=== PATIENT | female | born 1975 | race Caucasian/White ===

== ENCOUNTER → 2020-06-25 08:14 | Outpatient (BNVA) | payer BC, SELFPAY | PROVIDERS: Family Provider Nurse Practitioner; PCP Nurse Practitioner; Visit Provider Nurse Practitioner Family | DX: J02.0 Streptococcal pharyngitis (principal); R50.9 Fever, unspecified | CPT/HCPCS: 87071; 87400; 87880 ==

== ENCOUNTER → 2021-10-15 12:06 | Outpatient (BNVA) | payer BC, SELFPAY | PROVIDERS: Family Provider Nurse Practitioner; PCP Family Medicine; Visit Provider Family Medicine | DX: R07.9 Chest pain, unspecified (principal) | CPT/HCPCS: 80053; 82306; 84443; 84484; 85025; 85651; 86140 ==

== ENCOUNTER 2023-07-01 13:13 | Outpatient (CLI) | payer BC, SELFPAY ==
--- NOTE | 2023-07-01 13:30 | MM_ITS ---
WS: [id number] BILATERAL 3D TOMOSYNTHESIS DIGITAL SCREENING MAMMOGRAPHY WITH CAD CLINICAL INFORMATION: SCREENING HISTORY: Screening mammogram. No current complaints. COMPARISON: 2020 TECHNIQUE: Bilateral CC and MLO views. FINDINGS: The breasts are composed of heterogeneous fibroglandular density tissue, which can limit the detectio n of small underlying mass lesions. No suspicious mass, asymmetry, calcifications, or architectural d istortion. No evidence of malignancy. A few incidental punctate calcifications. IMPRESSION: MM/[place] [id number] BI-RADS: 2-Benign FOLLOW UP: 1 Year Follow-up Recommend return to annual screening mammography.
== END 2023-07-01 13:14 | disposition home or self-care (01) ==
LOC: MOBLMAM 13:16
PROVIDERS: Visit Provider Nurse Practitioner Family
DX: Z12.31 Encounter for screening mammogram for malignant neoplasm of breast (principal)
CPT/HCPCS: 77063; 77067

== ENCOUNTER 2024-07-22 16:05 | Outpatient (CLI) | payer BC, SELFPAY ==
--- NOTE | 2024-07-22 16:45 | MRR_ITS ---
PROCEDURE INFORMATION: Exam: MR Head Without Contrast Exam date and time: 07/22/2024 5:18 PM Age: 49 years old Clinical indication: Pain; Headache not specified; Patient HX: Headache for 3+days, blurred vision, nausea, ; additional info: I67.1 - cerebral aneurysm, nonruptured, auth # [id number] good 07/22/24 to 08/20/24 TECHNIQUE: Imaging protocol: Magnetic resonance imaging of the head without contrast. COMPARISON: No relevant prior studies available. FINDINGS: Brain: No intracranial hemorrhage. No evidence of acute territorial infarct or cerebral edema. No mass effect or midline shift. Cerebral ventricles: No hydrocephalus. Bones: Unremarkable. Paranasal sinuses: Mild mucosal thickening of the paranasal sinuses. No air-fluid levels. Mastoid air cells: The mastoid air cells are clear. Orbital cavities: The orbits and globes are unremarkable. 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 Vasculature: Unremarkable appearance of the vascular flow voids. No discrete aneurysm. Please note, this examination was not tailored for the assessment of the vasculature. Soft tissues: Soft tissues are unremarkable as visualized. MR/MR head wo con* [id number] IMPRESSION: No acute intracranial findings.
== END 2024-07-22 16:06 | disposition home or self-care (01) ==
LOC: RAD 16:07
PROVIDERS: PCP Nurse Practitioner Family; Visit Provider Nurse Practitioner Family
DX: I67.1 Cerebral aneurysm, nonruptured (principal)
CPT/HCPCS: 70551